=== PATIENT | male | born 1975 | race Caucasian/White ===

== ENCOUNTER 2021-10-21 00:24 | Emergency (ER) | payer OTHER ==
[2021-10-21] MEDS ORDERED: Iopamidol 755 Mg/ML 75 ML Bottle IV ONE (01:18)
== END 2021-10-21 03:55 | disposition home or self-care (01) ==
LOC: FB.ED 00:24
DX: J98.11 Atelectasis (principal); S61.012A Laceration without foreign body of left thumb without damage to nail, initial encounter; M25.50 Pain in unspecified joint; R06.09 Other forms of dyspnea; R91.1 Solitary pulmonary nodule; V89.2XXA Person injured in unspecified motor-vehicle accident, traffic, initial encounter; Y92.410 Unspecified street and highway as the place of occurrence of the external cause
CPT/HCPCS: 36415; 71275; 72125; 80053; 84484; 85025; 93005; 94150; 99284; Q9967; 93010; 99283

== ENCOUNTER 2023-12-05 19:06 | Emergency (ER) | payer MEDICAID ==
[2023-12-05] MEDS ORDERED: Sodium Chloride 0.9% 10 ML Syringe FLUSH PRN (19:36)
[2023-12-05 19:43] LABS: BASOPHILS ABSOLUTE AUTO 0.1 x10-3/uL (0.0-0.3); BASOPHILS PERCENT AUTO 1.3 % (0.3-3.8); EOSINOPHILS ABSOLUTE AUTO 0.2 x10-3/uL (0.0-0.6); EOSINOPHILS PERCENT AUTO 3.8 % (0.1-6.8); HEMATOCRIT 44.9 % (38.3-50.1); LYMPHOCYTES ABSOLUTE AUTO 2.7 x10-3/uL (0.5-4.5); LYMPHOCYTES PERCENT AUTO 42.5 % (15.8-45.3); MEAN CORPUSCULAR HEMOGLOBIN 29.9 pg (27.0-33.3); MEAN CORPUSCULAR HGB CONC 33.4 g/dL (28.7-35.3); MEAN CORPUSCULAR VOLUME 89.5 fL (80.8-98.7); MEAN PLATELET VOLUME 8.4 fL (6.7-11.0); MONOCYTES ABSOLUTE AUTO 0.7 x10-3/uL (0.0-1.2); MONOCYTES PERCENT AUTO 10.5 % (5.5-15.2); NEUTROPHILS ABSOLUTE AUTO 2.6 x10-3/uL (1.7-6.9); NEUTROPHILS PERCENT AUTO 41.9 % (40.3-71.8); PLATELET COUNT,PLT 208 x10(3)uL (117-477); RED BLOOD CELL COUNT 5.02 x10(6)uL (3.90-5.90); RED CELL DISTRIBUTION WIDTH 13.2 % (12.4-15.0); WHITE BLOOD CELL COUNT,WBC 6.3 x10-3/uL (3.2-10.1)
[2023-12-05 19:46] LABS: BLOOD UREA NITROGEN,BUN 14 mg/dL (7-18); CALCIUM 9.6 mg/dL (8.6-10.2); CARBON DIOXIDE,CO2 30 mmol/L (21-32); CHLORIDE,CL 104 mmol/L (100-110); ESTIMATED GFR 92 mL/min (>60); GLUCOSE RANDOM 102 mg/dL (80-116); POTASSIUM,K 3.6 mmol/L (3.5-5.3); SODIUM,NA 142 mmol/L (135-145)
[2023-12-05] MEDS: Aspirin 81 MG Tab.Chew PO ONE (19:51)
[2023-12-05 19:52] LABS: ALANINE AMINOTRANSFERASE,ALT 47 U/L (12-36); ALBUMIN 3.8 g/dL (3.5-5.2); ALKALINE PHOSPHATASE 108 IU/L (56-112); ASPARTATE AMNIOTRANSFERASE,AST 24 IU/L (5-25); BILIRUBIN TOTAL 0.3 mg/dL (0.1-1.3); MAGNESIUM 2.1 mg/dL (1.8-2.5); PROTEIN TOTAL,TP 7.8 g/dL (6.0-8.0)
[2023-12-05 19:57] LABS: C-REACTIVE PROTEIN < 0.50 mg/dL (<0.50); TROPONIN I 581.3 pg/mL (4.0-60.3)
[2023-12-05] MEDS: Sodium Chloride 0.9% 1,000 ML IV SCH (19:58)
[2023-12-05] MEDS: Nitroglycerin 0.4 MG Tab.SL SL PRN (19:58)
[2023-12-05] MEDS: Sodium Chloride 0.9% 500 ML IV ONE (20:18)
[2023-12-05 20:30] LABS: INR 0.87 (1.00-1.24); PROTHROMBIN TIME 9.2 sec (9.0-11.1); PTT,PARTIAL THROMBOPLSTIN TIME 24.9 SECONDS (24.4-33.2)
[2023-12-05] MEDS: Heparin Sodium 5,000 Units/ML Vial IVPUSH ONE (21:58)
[2023-12-05] MEDS: Heparin Sodium/0.45% NaCl 500 ML IV SCH (22:00)
== END 2023-12-06 00:10 ==
LOC: FB.ED 19:06
DX: I21.4 Non-ST elevation (NSTEMI) myocardial infarction (principal); I24.9 Acute ischemic heart disease, unspecified; F17.200 Nicotine dependence, unspecified, uncomplicated; Z90.49 Acquired absence of other specified parts of digestive tract
CPT/HCPCS: 71045; 80053; 83735; 84484; 85025; 85379; 85610; 85730; 86140; 93005; 93010; 96361; 96365; 96366; 99285; A9270; J1644; J7030; J7040

== ENCOUNTER 2023-12-10 23:47 | Emergency (ER) | payer MEDICAID ==
[~2023-12-10 23:47] MED LIST: Nitroglycerin/D5W 25 MG/250 ML BOTTLE IV SCH
[2023-12-10] MEDS ORDERED: Sodium Chloride 0.9% 10 ML Syringe FLUSH PRN (23:54)
[2023-12-11] MEDS: Heparin Sodium 5,000 Units/ML Vial IVPUSH ONE (00:01)
[2023-12-11 00:02] LABS: BASOPHILS ABSOLUTE AUTO 0.1 x10-3/uL (0.0-0.3); BASOPHILS PERCENT AUTO 1.1 % (0.3-3.8); EOSINOPHILS ABSOLUTE AUTO 0.3 x10-3/uL (0.0-0.6); EOSINOPHILS PERCENT AUTO 3.5 % (0.1-6.8); HEMATOCRIT 42.3 % (38.3-50.1); HEMOGLOBIN 14.6 g/dL (12.9-17.7); LYMPHOCYTES ABSOLUTE AUTO 4.4 x10-3/uL (0.5-4.5); LYMPHOCYTES PERCENT AUTO 46.6 % (15.8-45.3); MEAN CORPUSCULAR HEMOGLOBIN 30.1 pg (27.0-33.3); MEAN CORPUSCULAR HGB CONC 34.6 g/dL (28.7-35.3); MEAN CORPUSCULAR VOLUME 87.1 fL (80.8-98.7); MEAN PLATELET VOLUME 8.9 fL (6.7-11.0); MONOCYTES ABSOLUTE AUTO 0.8 x10-3/uL (0.0-1.2); MONOCYTES PERCENT AUTO 8.9 % (5.5-15.2); NEUTROPHILS ABSOLUTE AUTO 3.7 x10-3/uL (1.7-6.9); NEUTROPHILS PERCENT AUTO 39.9 % (40.3-71.8); PLATELET COUNT,PLT 228 x10(3)uL (117-477); RED BLOOD CELL COUNT 4.86 x10(6)uL (3.90-5.90); WHITE BLOOD CELL COUNT,WBC 9.4 x10-3/uL (3.2-10.1)
[2023-12-11] MEDS: Heparin Sodium/0.45% NaCl 500 ML IV SCH (00:02)
[2023-12-11] MEDS: Sodium Chloride 0.9% 1,000 ML IV SCH (00:03)
[2023-12-11] MEDS: Aspirin 81 MG Tab.Chew PO ONE (00:03)
[2023-12-11 00:11] LABS: BLOOD UREA NITROGEN,BUN 19 mg/dL (7-18); BUN/CREATININE RATIO 14.6 (9-20); CALCIUM 9.6 mg/dL (8.6-10.2); CARBON DIOXIDE,CO2 28 mmol/L (21-32); CHLORIDE,CL 102 mmol/L (100-110); CREATININE 1.3 mg/dL (0.70-1.30); ESTIMATED GFR 67 mL/min (>60); GLUCOSE RANDOM 133 mg/dL (80-116); POTASSIUM,K 4.1 mmol/L (3.5-5.3); SODIUM,NA 139 mmol/L (135-145)
[2023-12-11] MEDS ORDERED: Sodium Chloride 0.9% 1,000 ML IV SCH (00:15)
[2023-12-11 00:18] LABS: INR 0.98 (1.00-1.24); PROTHROMBIN TIME 10.2 sec (9.0-11.1)
[2023-12-11 00:22] LABS: ALKALINE PHOSPHATASE 105 IU/L (56-112); ASPARTATE AMNIOTRANSFERASE,AST 103 IU/L (5-25); BILIRUBIN TOTAL 0.4 mg/dL (0.1-1.3)
[2023-12-11 00:24] LABS: TROPONIN I 21.9 pg/mL (4.0-60.3)
[2023-12-11 00:25] LABS: ALANINE AMINOTRANSFERASE,ALT 247 U/L (12-36)
== END 2023-12-11 00:29 ==
LOC: FB.ED 23:47
DX: I21.4 Non-ST elevation (NSTEMI) myocardial infarction (principal); I25.10 Atherosclerotic heart disease of native coronary artery without angina pectoris; I10 Essential (primary) hypertension; E78.5 Hyperlipidemia, unspecified; Z90.49 Acquired absence of other specified parts of digestive tract
CPT/HCPCS: 36415; 71045; 80053; 83880; 84484; 85025; 85610; 85730; 93005; 96365; 96375; 99285; A9270; J1644; J7030; 93010

== ENCOUNTER 2023-12-16 18:05 | Emergency (ER) | payer MEDICAID ==
[2023-12-16 18:34] LABS: BASOPHILS PERCENT AUTO 0.6 % (0.3-3.8); EOSINOPHILS ABSOLUTE AUTO 0.2 x10-3/uL (0.0-0.6); EOSINOPHILS PERCENT AUTO 2.9 % (0.1-6.8); HEMATOCRIT 34.1 % (38.3-50.1); HEMOGLOBIN 11.4 g/dL (12.9-17.7); LYMPHOCYTES ABSOLUTE AUTO 1.2 x10-3/uL (0.5-4.5); LYMPHOCYTES PERCENT AUTO 20.2 % (15.8-45.3); MEAN CORPUSCULAR HEMOGLOBIN 29.4 pg (27.0-33.3); MEAN CORPUSCULAR HGB CONC 33.3 g/dL (28.7-35.3); MEAN CORPUSCULAR VOLUME 88.2 fL (80.8-98.7); MEAN PLATELET VOLUME 8.5 fL (6.7-11.0); MONOCYTES ABSOLUTE AUTO 0.4 x10-3/uL (0.0-1.2); MONOCYTES PERCENT AUTO 7.4 % (5.5-15.2); NEUTROPHILS ABSOLUTE AUTO 4.1 x10-3/uL (1.7-6.9); NEUTROPHILS PERCENT AUTO 68.9 % (40.3-71.8); PLATELET COUNT,PLT 210 x10(3)uL (117-477); RED BLOOD CELL COUNT 3.86 x10(6)uL (3.90-5.90); RED CELL DISTRIBUTION WIDTH 13.1 % (12.4-15.0)
[2023-12-16 18:36] LABS: BLOOD UREA NITROGEN,BUN 16 mg/dL (7-18); BUN/CREATININE RATIO 13.3 (9-20); CALCIUM 9.4 mg/dL (8.6-10.2); CARBON DIOXIDE,CO2 26 mmol/L (21-32); CHLORIDE,CL 102 mmol/L (100-110); CREATININE 1.2 mg/dL (0.70-1.30); ESTIMATED GFR 74 mL/min (>60); GLUCOSE RANDOM 156 mg/dL (80-116); POTASSIUM,K 4.3 mmol/L (3.5-5.3); SODIUM,NA 139 mmol/L (135-145)
[2023-12-16 18:42] LABS: A/G RATIO 0.8; ALANINE AMINOTRANSFERASE,ALT 108 U/L (12-36); ALBUMIN 3.2 g/dL (3.5-5.2); ALKALINE PHOSPHATASE 96 IU/L (56-112); ASPARTATE AMNIOTRANSFERASE,AST 69 IU/L (5-25); BILIRUBIN TOTAL 0.4 mg/dL (0.1-1.3); MAGNESIUM 1.9 mg/dL (1.8-2.5); PROTEIN TOTAL,TP 7.4 g/dL (6.0-8.0)
[2023-12-16 18:50] LABS: INR 0.98 (1.00-1.24); PROTHROMBIN TIME 10.2 sec (9.0-11.1); TROPONIN I 6941.3 pg/mL (4.0-60.3)
[2023-12-16 18:55] LABS: PTT,PARTIAL THROMBOPLSTIN TIME 25.8 SECONDS (24.4-33.2)
[2023-12-16] MEDS: Sodium Chloride 0.9% 10 ML Syringe FLUSH PRN (19:24)
[2023-12-16] MEDS: Heparin Sodium 5,000 Units/ML Vial IVPUSH ONE (19:35)
[2023-12-16] MEDS: Heparin Sodium/0.45% NaCl 500 ML IV SCH (19:51)
== END 2023-12-16 20:28 ==
LOC: FB.ED 18:05
DX: I25.10 Atherosclerotic heart disease of native coronary artery without angina pectoris (principal); Z90.49 Acquired absence of other specified parts of digestive tract; Z87.891 Personal history of nicotine dependence
CPT/HCPCS: 36415; 71045; 80053; 83735; 83880; 84484; 85025; 85379; 85610; 85730; 93005; 96365; 99285; J1644; J3490

== ENCOUNTER 2023-12-26 16:38 | Emergency (ER) | payer MEDICAID | END 2023-12-26 17:39 | disposition left against medical advice (07) | LOC: FB.ED 16:38 | DX: Z53.21 Procedure and treatment not carried out due to patient leaving prior to being seen by health care provider (principal) ==

== ENCOUNTER 2024-01-10 13:56 | Emergency (ER) | payer SELFPAY ==
[2024-01-10 14:27] LABS: BASOPHILS ABSOLUTE AUTO 0.1 x10-3/uL (0.0-0.3); EOSINOPHILS ABSOLUTE AUTO 0.2 x10-3/uL (0.0-0.6); EOSINOPHILS PERCENT AUTO 3.4 % (0.1-6.8); HEMATOCRIT 38.3 % (38.3-50.1); HEMOGLOBIN 13.2 g/dL (12.9-17.7); LYMPHOCYTES ABSOLUTE AUTO 1.7 x10-3/uL (0.5-4.5); LYMPHOCYTES PERCENT AUTO 29.8 % (15.8-45.3); MEAN CORPUSCULAR HGB CONC 34.3 g/dL (28.7-35.3); MEAN CORPUSCULAR VOLUME 87.3 fL (80.8-98.7); MEAN PLATELET VOLUME 9.1 fL (6.7-11.0); MONOCYTES ABSOLUTE AUTO 0.5 x10-3/uL (0.0-1.2); MONOCYTES PERCENT AUTO 8.1 % (5.5-15.2); NEUTROPHILS ABSOLUTE AUTO 3.3 x10-3/uL (1.7-6.9); NEUTROPHILS PERCENT AUTO 57.7 % (40.3-71.8); PLATELET COUNT,PLT 171 x10(3)uL (117-477); RED BLOOD CELL COUNT 4.39 x10(6)uL (3.90-5.90); RED CELL DISTRIBUTION WIDTH 13.7 % (12.4-15.0); WHITE BLOOD CELL COUNT,WBC 5.7 x10-3/uL (3.2-10.1)
[2024-01-10 14:37] LABS: ALANINE AMINOTRANSFERASE,ALT 34 U/L (12-36); ALBUMIN 3.8 g/dL (3.5-5.2); ALKALINE PHOSPHATASE 109 IU/L (56-112); ASPARTATE AMNIOTRANSFERASE,AST 17 IU/L (5-25); BILIRUBIN TOTAL 0.5 mg/dL (0.1-1.3); BLOOD UREA NITROGEN,BUN 12 mg/dL (7-18); CALCIUM 9.5 mg/dL (8.6-10.2); CARBON DIOXIDE,CO2 30 mmol/L (21-32); EST CRCL DRUG DOSING (CG) 80.64 mL/min; ESTIMATED GFR 92 mL/min (>60); GLUCOSE RANDOM 116 mg/dL (80-116); PROTEIN TOTAL,TP 7.6 g/dL (6.0-8.0)
[2024-01-10 14:42] LABS: CHLORIDE,CL 104 mmol/L (100-110); POTASSIUM,K 3.9 mmol/L (3.5-5.3); SODIUM,NA 141 mmol/L (135-145)
[2024-01-10 14:43] LABS: TROPONIN I 21.3 pg/mL (4.0-60.3)
[2024-01-10 14:44] LABS: C-REACTIVE PROTEIN < 0.50 mg/dL (<0.50); PRO B-TYPE NATRIUR PEPT,BNPPRO 1133 pg/mL (<=125)
== END 2024-01-10 15:15 | disposition home or self-care (01) ==
LOC: FB.ED 13:56
DX: R06.02 Shortness of breath (principal); R79.89 Other specified abnormal findings of blood chemistry; Z90.49 Acquired absence of other specified parts of digestive tract; Z87.891 Personal history of nicotine dependence
CPT/HCPCS: 36415; 71046; 80053; 83735; 83880; 84484; 85025; 85379; 86140; 93005; 99285